=== PATIENT | female | born 1960 | race Caucasian/White ===

== ENCOUNTER 2020-11-29 05:34 | Outpatient (RCR) | payer MEDICAID ==
[~2020-11-29] VITALS: Ht 165.1 cm; Wt 59.2 kg
[~2020-11-29 05:34] MED LIST: APIX5TAB PO; CITA40TA19 PO; ENAL1TAB8 PO; ENLP5T PO; FLUO20CA42 PO; FOLI1TAB33 PO; TRZ50T PO
== END 2020-11-29 10:55 | disposition home or self-care (01) ==
LOC: PREOP 05:34
PROVIDERS: ATTEND Surgery
DX: Z01.818 Encounter for other preprocedural examination (principal); R22.0 Localized swelling, mass and lump, head; Z20.822 Contact with and (suspected) exposure to COVID-19
CPT/HCPCS: 87635

== ENCOUNTER 2020-12-01 10:09 | Day surgery (SDC) | payer MEDICAID, OTHER ==
[~2020-12-01] VITALS: Ht 165.1 cm; Wt 59.2 kg
[2020-12-01] VITALS (11 sets, daily range): BP systolic 109–130; BP diastolic 53–69
--- NOTE | 2020-12-01 10:31 | Progress Note-Pre Operative ---
Pre-Operative Progress Note H&P Reviewed The H&P was reviewed, patient examined and no changes noted. Time Seen by Provider: 10:29 Date H&P Reviewed: Dec 01, 2020 Time H&P Reviewed: 10:30 Pre-Operative Diagnosis: Left cheek mass AIDAN CARY DO Dec 01, 2020 10:31
[2020-12-01] MEDS ORDERED: fentaNYL INJECTION 100 MCG/2 ML AMP ONE (10:44)
[2020-12-01] MEDS ORDERED: LIDOCAINE PF 2% 5 ML (XYLOCAINE) VIAL ONE (10:44)
[2020-12-01] MEDS ORDERED: proPOfol 200 MG/20 ML (DIPRIVAN) VIAL IV ONE (10:44)
[2020-12-01] MEDS ORDERED: ONDANSETRON 4 MG/2 ML (SDV) Z0FRAN ONE (10:44)
[2020-12-01] MEDS ORDERED: ceFAZolin INJECTION 1,000 MG in WATER (STERILE) FOR INJECTION 10 ML IV ONE (10:45)
[2020-12-01] MEDS ORDERED: MIDAZOLAM 2 MG/2 ML (VERSED) VIAL ONE (10:45)
[2020-12-01] MEDS ORDERED: LACTATED RINGERS 1,000 ML IV PRN (10:45)
[2020-12-01] MEDS ORDERED: SEVOFLURANE (ULTANE) 15 ML INHAL SOLN ONE (10:45)
[2020-12-01] MEDS ORDERED: LIDOCAINE/EPI 1%-1:200,000 (XYLOCAINE) 10 ML VIAL ONE (10:59)
[2020-12-01] MEDS ORDERED: RT-ALBUINH INH (12:25)
[2020-12-01] MEDS ORDERED: BSS 15 ML ONE (12:30)
--- NOTE | 2020-12-01 13:00 | Progress Note-Post Operative ---
Post-Operative Progess Note Surgeon (s)/Pantograph Machine Set Up Operator (s) Surgeon AIDAN CARY DO Pantograph Machine Set Up Operator: BASIL Godinez Pre-Operative Diagnosis Left cheek mass Post-Operative Diagnosis same pending path Procedure & Operative Findings Date of Procedure 12/01/20 Procedure Performed/Findings Exc Left cheek mass, 2.2 cm down to just above orbicularis muscle Anesthesia Type LMA Estimated Blood Loss Estimated blood loss (mL): scant Specimens/Packing Specimens Removed left cheek mass AIDAN CARY DO Dec 01, 2020 13:00
[2020-12-01] MEDS ORDERED: ACHD5005 PO (13:01)
--- NOTE | 2020-12-01 13:02 | Discharge Inst-Surgical ---
Discharge Inst-Surgical Depart Medication/Instructions New, Converted or Re-Newed RX: RX Given to Pt/Family Patient Instructions Follow up Appt: Make appointment for 1 week. [phone] Instructions: May shower in 24 hours, no tub bath or soaking. Use incentive spirometer at home as directed. No Smoking Skin/Wound Care: May remove bandages in am. You need to leave the Dermabond on incision it will fall off on it's own. Symptoms to Report: Appetite Changes, Extremity Discoloration, Numbness/Tingling, Swelling Increased, Bleeding Excessive, Eyesight Changes, Pain Increased, Urine Color Change, Constipation(Persistent), Fever over 101 degree F, Pain/Pressure in chest, Urinating Difficulty, Cough Up/Vomit Blood, Heart Beat Irreg/Pounding, P ain/Pressure in jaw, Cramps in feet or legs, Lightheadedness, Pain/Pressure in shoulder, Diarrhea(Persistent), Memory Changes Suddenly, Questions/Concerns, Weight gain consecutive days, Dizziness/Fainting, Nausea/Vomiting, Shortness of Breath, Weight gain over 2 pounds If questions or concerns contact your physician Or seek help at emergency department. Activity Activity as Tolerated: Yes Activity Instructions: Avoid Stress to Incision Driving Instructions: No Driving/Refer to Dr. Barrios Discharge Diet: No Restrictions Diet After 24 Hours: Clear Liquid if Nauseous If Any Problems/Questions/Issu: Contact Your Physician, Go to Emergency Room Skin/Wound Care Infection Signs and Symptoms: Increased Redness, Foul Odor of Wound, Increased Drainage, Skin Itchy or Has a Rash, Increased Swelling, Temperature Above 101 F Bathing Instructions: Shower Stitches/[place]/Dermabond Dis: AIDAN White DO Dec 01, 2020 13:02
[2020-12-01] MEDS ORDERED: ONDANSETRON 4 MG/2 ML (SDV) Z0FRAN IVP PRN (13:15)
[2020-12-01] MEDS: HYDROmorphone 2 MG/ML VIAL (DILAUDID) IV ONE ×2 (13:19→13:42)
--- NOTE | 2020-12-01 13:34 | Anesthesia-General Post-Op ---
General Patient Condition Mental Status/LOC: Same as Preop Cardiovascular: Satisfactory Nausea/Vomiting: Absent Respiratory: Satisfactory Pain: Controlled Complications: Absent Post Op Complications Complications None Follow Up Care/Instructions Patient Instructions None needed. Anesthesia/Patient Condition Patient Condition Patient is doing well, no complaints, stable vital signs, no apparent adverse anesthesia problems. No complications reported per nursing. D/C home per [facility] Criteria: Yes BUCK AMADOR CRNA Dec 01, 2020 13:34
[2020-12-01] MEDS ORDERED: HYDROcodone/APAP 5 MG/325 MG (LORTAB) TAB ONE (14:00)
[2020-12-01] MEDS ORDERED: HYDROcodone/APAP 5 MG/325 MG (LORTAB) TAB PO ONE (14:15)
--- NOTE | 2020-12-01 15:58 | OPERATIVE REPORT ---
DATE OF SERVICE: PREOPERATIVE DIAGNOSIS: Left cheek mass. POSTOPERATIVE DIAGNOSIS: Left cheek mass, pending pathology. PROCEDURE: Excision of left cheek mass 2.2 cm incision just above the ocularis muscle. SURGEON: Fran Courtney DO NARROW FABRICS WEAVER: APRIL Godinez. ANESTHESIA: LMA. SPECIMEN: Left cheek mass. BLOOD LOSS: Scant. FLUIDS: Per anesthesia. POSTOPERATIVE CONDITION: Stable. INDICATION FOR PROCEDURE: The patient is a 60-year-old female who has a mass, on the left cheek, just below the eye and close to the nose, needed to get this removed, looked like it was probably a cancer. FINDINGS: The patient had this area removed, elliptical incision measuring 2.2 cm long, going down to the subcutaneous tissue and just above the orbicularis muscle. PROCEDURE NOTE: After informed consent was obtained, the patient was brought to the operating room, placed on the operating table in supine position. She was sterilely prepped and draped in normal fashion. Local lidocaine was used to infiltrate the skin around this mass, then made an elliptical incision with #15 blade, carried down through the skin and subcutaneous tissue and removed this with Bovie electrocautery. Sutured long suture laterally and a short superiorly to anamika this, passed this off the table. There looked like there was a deep portion of mass that got left behind when I removed the skin and I grasped this with an Allis and then cut this off with Bovie electrocautery and sent this with specimen. Hemostasis obtained using Bovie electrocautery, then elected to close the incision with 5-0 undyed Monocryl, four interrupted subcuticular sutures and one simple suture, did not look like it had close the eye. At this point, the area was cleaned and dried and skin Affix was placed. The patient tolerated the procedure. Sponge, instrument and needle count correct at the end of the case. Job ID: [id number] DocumentID: [id number] Dictated Date: 12/01/2020 12:58:56 Carpenter And Joiner Date: 12/01/2020 15:56:50 Dictated By: FRAN COURTNEY DO [facility]
== END 2020-12-01 15:30 | disposition home or self-care (01) ==
LOC: SDC 10:09
PROVIDERS: ATTEND Surgery
DX: C44.319 Basal cell carcinoma of skin of other parts of face (principal); I10 Essential (primary) hypertension; J45.909 Unspecified asthma, uncomplicated; F41.9 Anxiety disorder, unspecified; F32.9 Major depressive disorder, single episode, unspecified; Z79.899 Other long term (current) drug therapy; Z79.01 Long term (current) use of anticoagulants; Z87.891 Personal history of nicotine dependence
CPT/HCPCS: 87081; 88305

== ENCOUNTER 2021-04-15 14:04 | Emergency (ER) | payer MEDICAID ==
[~2021-04-15] VITALS: Ht 165 cm; Wt 68.0 kg
[~2021-04-15 14:04] MED LIST changes: +ACHD5005 PO; +DULO30CA49 PO; +DULO60CA59 PO; +ENAL10TA16 PO; +FURO20TA4 PO; +GABA300C PO; +HYDR-3781 PO; +POTA-51 PO; +RT-ALBUINH INH
[2021-04-15] MEDS ORDERED: ACHD5005 PO (14:26)
--- NOTE | 2021-04-15 14:26 | ED Upper Extremity ---
General Chief Complaint: Upper Extremity Stated Complaint: L SHOULDER PAIN Source: patient Exam Limitations: no limitations History of Present Illness Date Seen by Provider: Apr 15, 2021 Time Seen by Provider: 14:24 Initial Comments To ER with left shoulder pain for the past few days. She was here a few days ago for a proximal left humerus fracture and signed her self out AGAINST MEDICAL ADVICE. She is without pain medication or a sling at home Onset: just prior to arrival Severity: moderate Pain/Injury Location: left shoulder Method of Injury: fell Modifying Factors: Worse With Movement Allergies and Home Medications Allergies Coded Allergies: No Known Drug Allergies (Unverified , 11/25/20) Home Medications Duloxetine HCl 30 Mg Capsule.dr, 30 MG PO DAILY, (Reported) TAKES 30MG +60MG DAILY Duloxetine HCl 60 Mg Capsule.dr, 60 MG PO DAILY, (Reported) TAKES 30MG +60MG DAILY Enalapril Maleate 10 Mg Tablet, 10 MG PO DAILY, (Reported) Folic Acid 1 Mg Tablet, 1 MG PO DAILY, (Reported) Furosemide 20 Mg Tablet, 20 MG PO DAILY, (Reported) Gabapentin 300 Mg Capsule, 300 MG PO QID, (Reported) Hydrocodone/Acetaminophen 1 Each Tablet, 1 TAB PO Q4H PRN for PAIN-MODERATE (5- 7) Prescribed by: MARIE MILIAN on 04/15/21 1426 Hydroxyzine Pamoate 25 Mg Capsule, 25 MG PO TID PRN for ANXIETY, (Reported) Potassium Chloride 20 Meq Tablet.er, 20 MEQ PO DAILY, (Reported) Trazodone HCl 50 Mg Tablet, 50-100 MG PO HS PRN for SLEEP, (Reported) Patient Home Medication List Home Medication List Reviewed: Yes Review of Systems Constitutional: see HPI EENTM: see HPI Respiratory: no symptoms reported Cardiovascular: no symptoms reported Genitourinary: no symptoms reported Musculoskeletal: see HPI Skin: no symptoms reported Psychiatric/Neurological: No Symptoms Reported Past Zzvmlel-Ijgtyq-Rnuqdq Hx Seasonal Allergies Seasonal Allergies: No Past Medical History Surgeries: Yes Orthopedic Respiratory: Yes Asthma Currently Using CPAP: No Currently Using BIPAP: No Cardiac: Yes (HX OF DVT) Deep Vein Thrombosis, Hypertension Neurological: No Female Reproductive Disorders: Denies Genitourinary: No Gastrointestinal: No Musculoskeletal: No Endocrine: No HEENT: No Cancer: No Psychosocial: Yes Anxiety, Depression Integumentary: No Blood Disorders: Yes (RH FACTOR) Family Medical History No Pertinent Family Hx Physical Exam Vital Signs Capillary Refill : Height, Weight, BMI Height: '" Weight: lbs. oz. kg; 22.03 BMI Method: General Appearance: WD/WN, no apparent distress Neck: non-tender, full range of motion Respiratory: no respiratory distress, no accessory muscle use Shoulder: deformity, ecchymosis, limited ROM, pain, soft tissue tenderness, swelling Elbow/Forearm: normal inspection, non-tender Wrist: Yes normal inspection, Yes non-tender (Strong radial pulse left wrist) Hand: normal inspection, non-tender Neurologic/Psychiatric: alert, normal mood/affect, oriented x 3 Progress/Results/Core Measures Results/Orders My Orders Orders - MARIE MILIAN APRN Ekg Tracing (04/15/21 14:30) Ketorolac Injection (Toradol Injection) (04/15/21 14:30) Hydrocodone/Apap 5/325 Tablet (Lortab 5 (04/15/21 14:30) Departure Communication (Admissions) 2418 her EKG shows sinus rhythm rate of [address] segment changes or ectopy normal intervals Impression Primary Impression: Closed fracture of left proximal humerus Disposition: HOME, SELF-CARE Condition: Stable Departure-Patient Inst. Decision time for Depature: 14:24 Referrals: NO,LOCAL PHYSICIAN (PCP/Family) Primary Care Physician Patient Instructions: Shoulder Fracture Add. Discharge Instructions: 1. Return to ER for any concerns 2. All discharge instructions reviewed with patient and/or family. Voiced understanding. Scripts Hydrocodone/Acetaminophen (Hydrocodone-Acetamin 5-325 mg) 1 Each Tablet 1 TAB PO Q4H PRN for PAIN-MODERATE (5-7), #14 TAB Prov: MARIE MILIAN APRN 04/15/21 MARIE MILIAN APRN Apr 15, 2021 14:26
[2021-04-15] MEDS ORDERED: KETOROLAC 60 MG/2 ML VIAL IM ONE (14:30)
[2021-04-15] MEDS ORDERED: HYDROcodone/APAP 5 MG/325 MG (LORTAB) TAB PO ONE (14:30)
[2021-04-15 15:02] VITALS: BP 156/68
== END 2021-04-15 15:03 | disposition home or self-care (01) ==
LOC: EDUNIT# 14:04 → ER 14:05
DX: S42.292A Other displaced fracture of upper end of left humerus, initial encounter for closed fracture (principal); J45.909 Unspecified asthma, uncomplicated; I10 Essential (primary) hypertension; F41.9 Anxiety disorder, unspecified; F32.9 Major depressive disorder, single episode, unspecified; Z79.899 Other long term (current) drug therapy; X58.XXXA Exposure to other specified factors, initial encounter
CPT/HCPCS: 93005

== ENCOUNTER → 2021-04-27 | Outpatient (CLI) | payer MEDICAID ==
--- NOTE | 2021-04-27 10:19 | Diagnostic Imaging Report ---
Indication: Left arm pain AP and transscapular views of left shoulder are obtained. When compared to study of 04/09/2021, there has been further increase in displacement and angulation at the comminuted proximal humeral shaft fracture. There is also inferior dislocation of the humeral head with respect to the glenoid process. IMPRESSION: Inferior dislocation of left humeral head with increasing angulation of proximal humeral shaft fracture. Dictated by: Dictated on workstation # [id number]
== END ==
LOC: ORTHO 09:25
PROVIDERS: ATTEND Orthopaedic Surgery
DX: S42.232D 3-part fracture of surgical neck of left humerus, subsequent encounter for fracture with routine healing (principal); X58.XXXD Exposure to other specified factors, subsequent encounter
CPT/HCPCS: 73030; 99203

== ENCOUNTER 2021-05-27 12:58 | Emergency (ER) | payer MEDICAID ==
[~2021-05-27] VITALS: Ht 165 cm; Wt 68.0 kg
[2021-05-27] MEDS ORDERED: morphine INJ 10 MG/ML 1ML (SYR OR VIAL) IVP STA ×2 (13:08→14:50)
--- OUTSIDE RECORDS SUMMARY | 2021-05-27 13:12 | XMS REPORT | Encounter Summary ---
Author Author [facility] Organization [facility] Address Unknown Phone Unavailable Care Team Providers Care Laundry Assistant Name Role Phone Cassius Morton PA-C PCP Loyda Li Unavailable Unavailable Encounter Details Care Team Description Date Type Department Loyda Li 05/18/2021 Med Assistance [place] [facility] [address] [place] [address] Social History Date Tobacco Use Types Packs/Day Years Used Current Every Day Smoker Cigarettes Smokeless Tobacco: Never Used Comments: less than a pack/week Comments Alcohol Use Standard Drinks/Week [place] 06[place]16. 5 fireballs 1 beer a week Not Currently 0 (1 standard drink = 0.6 o z pure alcohol) Alcohol Habits Answer Date Recorded How often do you have a drink containing alcohol? 4 or mor e times a week 05/04/2020 How many drinks containing alcohol do you have on 10 or mo re 05/04/2020 a typical day when you are drinking? How often do you have six or more drinks on one Daily or a lmost daily 05/04/2020 occasion? Social Isolation Answer Date Recorded In a typical week, how many times do you talk on Once a we ek 03/29/2020 the phone with family, friends, or neig hbors? How often do you get together with friends or Never 03/29/2020 relatives? How often do you attend yarsanism or latter-day Never 03/29/2020 services? Do you belong to any clubs or organizations such No 03/29/2020 as yarsanism groups, unions, fraternal or athletic groups, or school groups? How often do you attend meetings of the clubs or Never 03/29/2020 organizations you belong to? Are you now , , , , Divorce d 03/29/2020 never or living with a partner? Physical Activity Answer Date Recorded On average, how many days per week do you engage 0 days 03/29/2020 in moderate to strenuous exercise (like walking fast, running, jogging, dancing, swimmi ng, biking, or other activities that cause a light or heavy sweat)? On average, how many minutes do you engage in 0 min 03/29/2020 exercise at this level? Stress Answer Date Recorded Do you feel stress - tense, restless, nervous, or Very muc h 03/29/2020 anxious, or unable to sleep at night be cause your mind is troubled all the time - these d ays? Education Answer Date Recorded What is the highest level of school you have High school g raduate 05/04/2020 completed or the highest degree you hav e received? Financial Resource Strain Answer Date Recorde d How hard is it for you to pay for the very basics Very bruna d 03/29/2020 like food, housing, medical care, and h eating? Intimate Partner Violence Answer Date Recorde d Within the last year, have you been afraid of your No 03/29/2020 partner or ex-partner? Within the last year, have you been humiliated or No 03/29/2020 emotionally abused in other ways by you r partner or ex-partner? Within the last year, have you been kicked, hit, No 03/29/2020 slapped, or otherwise physically hurt b y your partner or ex-partner? Within the last year, have you been raped or No 03/29/2020 forced to have any kind of sexual activ ity by your partner or ex-partner? Food Insecurity Answer Date Recorded Within the past 12 months, you worried that your Sometimes true 05/04/2020 food would run out before you got money to buy more. Within the past 12 months, the food you bought Sometimes t rue 05/04/2020 just didn't last and you didn't have mo adam to get more. Transportation Needs Answer Date Recorded In the past 12 months, has lack of transportation No 03/29/2020 kept you from medical appointments or f rom getting medications? In the past 12 months, has lack of transportation No 03/29/2020 kept you from meetings, work, or gettin g things needed for daily living? Control Partners Comments Sexually Active Post-menopausal Male Not Currently Sex Assigned at Date Recorded Female 06/17/2020 1:47 PM CDT Industry Job Start Date Occupation Not on file Not on file Not on file documented as of this encounter Miscellaneous Notes * Progress Notes - Loyda Li - 05/18/2021 2:11 PM CDT [place] is no longer on the free program Loyda Li documented in this encounter Plan of Treatment Not on filedocumented as of this encounter Visit Diagnoses Not on filedocumented in this encounter Care Teams Start Date End Date Laundry Assistant Relationship Specialty 10/02/12 Cassius Morton PA-C PCP - General [address] [place] [address] [email or web address] 01/04/21 Loyda Li Community Resource Representativ e documented as of this encounter
--- OUTSIDE RECORDS SUMMARY | 2021-05-27 13:12 | XMS REPORT | Clinical Summary ---
Author Author [facility] Address Unknown Phone Unavailable Care Team Providers Care Fisher Diver Net Name Role Phone Cassius Morton PA-C PCP Loyda Li Unavailable Unavailable Allergies No known active allergies Medications End Date Status Medication Sig Dispensed Refills Start Date Active albuterol (PROAIR, Inhale 2 54 g 3 02 VENTOLIN) 108 (90 Base) puffs into 0 MCG/ACT the lungs inhalerIndications: every 6 (six) Bronchitis hours as needed for Shortness of Breath. Active Melatonin 5 MG CHEW Chew 1 tablet 30 tablet 1 08/02 (5 mg total) 0 at bedtime. Active apixaban (ELIQUIS) 5 MG Take 1 tablet 180 tablet 3 tabletIndications: Acute (5 mg total) 0 deep vein thrombosis by mouth 2 (DVT) of femoral vein of (two) times left lower extremity daily. ([facility]) Active gabapentin (NEURONTIN) 2 po tid 270 capsule 1 100 MG 0 capsuleIndications: Neuropathy, Leg pain, bilateral Active traZODone (DESYREL) 50 MG Take 1 tablet 30 tablet 2 tabletIndications: Mild (50 mg total) 1 episode of recurrent by mouth at major depressive disorder bedtime. ([facility]) Active citalopram (CELEXA) 40 MG Take 1 tablet 30 tablet 2 tabletIndications: Mild (40 mg total) 1 episode of recurrent by mouth major depressive disorder daily. ([facility]) Active enalapril (VASOTEC) 5 MG Take 1 tablet 30 tablet 2 tabletIndications: (5 mg total) 1 Essential hypertension by mouth daily. Active potassium chloride SA Take 1 tablet 90 tablet 2 (K-TAB) 20 MEQ (20 mEq 1 tabletIndications: total) by Hypokalemia mouth daily. Active folic acid (FOLVITE) 1 MG Take 1 tablet 30 tablet 2 tablet (1 mg total) 1 by mouth daily. Active oxycodone-acetaminophen Take 1 tablet 30 tablet 0 (PERCOCET) 7.5-325 MG per by mouth 1 tabletIndications: every 8 Neuropathy, Leg pain, (eight) hours bilateral as needed for Moderate Pain. Active enalapril (VASOTEC) 10 MG Take 1 tablet 30 tablet 0 tabletIndications: by mouth once 1 Essential hypertension daily Active furosemide (LASIX) 20 MG TAKE 1 TABLET 30 tablet 1 tablet BY MOUTH ONCE 1 DAILY . APPOINTMENT REQUIRED FOR FUTURE REFILLS 05/04/2021 Discontinued furosemide (LASIX) 20 MG Take 1 tablet 30 tablet 0 tablet by mouth once 1 daily Active Problems Patient Care Coordination Note Ventolin is no longer on the free program Loyda Li Ventolin will be refilled in 7 to 10 days Loyda Medication Eliquis will be auto shipped every 3 months. It was shipped out on 01/05/2021 Queenie Thompson (10/19/2020 9:49 AM): ?Naldo Gutierrez will ship medication to pt on 10/19/20. Pt should receives med on 10/20/20. Queenie Morales (04/14/2020 1:54 PM): ?[employer] has approved PAP on 04/09/20 thru 04/08/2021. Medication has not been shipped yet Problem Noted Date Tobacco use 07/19/2020 Overview: Formatting of this note might be differ ent from the original. Automatically added based on charted SH X tobacco use status. L ast Assessment & Plan: Formatting of this note might be differ ent from the original. Ready to quit: No Counseling given: Yes Comment: less than a pack/week Deep vein thrombosis (DVT) of lower extremity 2019 Last Assessment & Plan: Formatting of this note might be differ ent from the original. Reviewed records from [facility]. Continue Eliquis. Report increased swelling, chest pain o r trouble breathing. I did refill a short script of Percocet 7.5 mg. I told her I would not feel chronic narcotics. Abdominal pain 06/18/2020 Hypomagnesemia 06/17/2020 Elevated LFTs 06/17/2020 Body mass index less than 19, adult 05/03/2020 Underweight 05/03/2020 Alcohol abuse 05/03/2020 Smoker 05/03/2020 TIA (transient ischemic attack) 03/29/2020 Gastroesophageal reflux disease without esophagitis 06/15/2014 Mild episode of recurrent major depress willie disorder Backache, unspecified Essential hypertension Last Assessment & Plan: Formatting of this note might be differ ent from the original. Elevated reading. She has run out of enalapril. Enalapril was refilled. Pain in joint, shoulder region Hepatitis C Resolved Problems Problem Noted Date Resolved Date Pyuria 06/17/2020 07/19/2020 Enteritis 06/17/2020 07/19/2020 Hypokalemia 05/03/2020 07/19/2020 Hypernatremia 05/03/2020 07/19/2020 Acute pancreatitis 05/03/2020 07/19/2020 Acute alcoholic intoxication 05/03/2020 0 Encounters Care Team Description Date Type Specialty Loyda Li 05/18/2021 Med Assistance Care Management Cassius Morton PA-C Medication Refill 05/02/2021 Refill Family Medicine Cassius Morton PA-C Record Request 04/11/2021 Telephone Family Medicine Cassius Morton PA-C Medication Refill 04/01/2021 Refill Family Medicine Ya Bronson MD 03/27/2021 Orders Only Family Medicine Cassius Morton PA-C Medication Refill (Enalapril, Furosemide ) 03/24/2021 Refill Family Medicine Queenie Morales LMSW 03/10/2021 Patient Care Management Outreach Queenie Morales LMSW 03/02/2021 Patient Care Management Outreach from Last 3 Months Immunizations Name Administration Dates Next Due INFLUENZA A&B TRIVALENT 07/15/2019 VAC ADJUVANTED PF (Adults=>65 y/o-FLUAD) INFLUENZA IIV4 PF 06/22/2020, 07/15/2019 (FLULAVAL,FLUZONE,FLUARIX ,AFLURIA QUAD) Influenza IIV3 PFree 07/04/2011 PPD Test 09/06/2020 Family History Medical History Relation Name Comments No Known Problems Father Cancer Mother Heart failure Mother Relation Name Status Comments Father Mother Social History Date Tobacco Use Types Packs/Day Years Used Current Every Day Smoker Cigarettes Smokeless Tobacco: Never Used Tobacco Cessation: Ready to Quit: No; Co unseling Given: Yes Comments: less than a pack/week Comments Alcohol [...] 03/29/2020 relatives? How often do you attend orthodox or taoism Never 03/29/2020 services? Do you belong to any clubs or organizations such No 03/29/2020 as orthodox groups, unions, fraternal or athletic groups, or [...] of school you have High school g [employer] 05/04/2020 completed or the highest degree you julio e received? Financial Resource Strain Answer Date [...] file Not on file Not on file Last Filed Vital Signs Reading Time Taken Comments Vital Sign 132/60 10/12/2020 10:36 AM SENIOR LOAN OFFICER Blood Pressure 80 10/12/2020 10:36 AM SENIOR LOAN OFFICER Pulse 36.1 C (97 F) 10/12/2020 10:36 AM SENIOR LOAN OFFICER Temperature 20 09/29/2020 11:47 AM SENIOR LOAN OFFICER Respiratory Rate 100% 07/19/2020 1:31 PM CDT Oxygen Saturation - - Inhaled Oxygen Concentration 53 kg (116 lb 12.8 oz) 10/12/2020 10:36 AM SENIOR LOAN OFFICER Weight 165.1 cm (5' 5") 06/18/2020 5:15 AM CDT Height 19.44 06/18/2020 5:15 AM CDT Body Mass Index Plan of Treatment Health Maintenance Due Date Last Done Comments Pneumo-Vaccine: 65+Yrs (1 1968 of 2 - PPSV23) Pneumo-Vaccine: Peds (0-5 1968 Yrs) & At-Risk Patients (6-64 Yrs) (1 of 2 - PPSV23) DTaP,Tdap,and Td Vaccines 1981 (1 - Tdap) MMR Vaccines-Adult 1981 Cervical Cancer Screening 1983 Breast Cancer 2012 Screening-Mammogram Colon Cancer Screening 2012 Zoster Vaccine (1 of 2) 2012 Influenza Vaccine (#1) 2021 06/22/2020, 07/15/2019, 07/15/2019, Additional history exists COVID-19 Vaccine Completed 01/19/2021, 12/18/2020 HIB Vaccines Aged Out No longer eligible based on patient's age to complete this topic IPV Vaccines Aged Out No longer eligible based on patient's age to complete this topic Meningococcal Vaccine Aged Out No longer eligib le based on patient's age to complete this topic Rotavirus Vaccines Aged Out No longer eligible based on patient's age to complete this topic Results Not on filefrom Last 3 Months Insurance Type Payer Benefit Subscriber ID Effective Phone Address Plan / Dates Group KANCARE AETNA KANCARE 19 [id number] 2020-P [address] [place] [address] [facility] [id number] Advance Directives For more information, please contact: [phone] Patient Animal Caretaker Supervisor Explanation Type Date Recorded Advance Directives and Living Will Power of Scoreboard Operator Date Inactivated Comments Code Status Date Activated 06/19/2020 2:35 PM Full Code 06/17/2020 10:25 AM 06/17/2020 5:11 AM Full Code 05/04/2020 11:18 AM 05/04/2020 11:18 AM Full Code 05/03/2020 2:04 AM Care Teams Start Date End Date Fisher Diver Net Relationship Specialty 10/02/12 Cassius Morton PA-C PCP - General [address] [place] [id number] [email or web address] 01/04/21 Loyda Li Community Resource Representativ e
--- OUTSIDE RECORDS SUMMARY | 2021-05-27 13:12 | XMS REPORT | Encounter Summary ---
Author Author [facility] Address Unknown Phone Unavailable Care Team Providers Care Entry Specialist Name Role Phone Cassius Morton PA-C PCP Loyda Li Unavailable Unavailable Reason for Visit * Reason Comments Medication Refill Encounter Details Care Team Description Date Type Department Cassius Morton PA-C [address] [place] [address] [email or web address] Medication Refill 05/02/2021 Refill Cotton O`Alfonso - [facility] [address] [place] [address] Social History Date Tobacco Use Types Packs/Day [...] 03/29/2020 relatives? How often do you attend temple or jew Never 03/29/2020 services? Do you belong to any clubs or organizations such No 03/29/2020 as temple groups, unions, fraternal or athletic groups, or [...] as of this encounter Miscellaneous Notes * Telephone Encounter - Ibeth Gay LPN - 05/04/2021 3:46 PM CDT Medication sent to pharmacy. * Telephone Encounter - Cassius Morton PA-C - 05/04/2021 3:07 PM CDT Ok x 2 * Telephone Encounter - Gracia Jurado LPN - 05/04/2021 11:53 AM CDT Unable to refill medication(s) per [facility] standing orders. Patient no showed for OV on 01/12/21 Called patient and left voice mail on appointment needed. Last refill note: Appointment required for future refills. Message routed to Provider for review. Requested Prescriptions Pending Prescriptions Disp Refills furosemide (LASIX) 20 MG tablet [Pharmacy Med Name: Furosemide 20 MG Oral Ta blet] 30 tablet 0 Sig: TAKE 1 TABLET BY MOUTH ONCE DAILY . APPOINTMENT REQUIRED FOR FUTURE REFIL LS Last Rx was written on 03/28/21 for qty 30 with 0 additional refills Last OV: 10/12/20 Next OV: none-patient no showed for f/u on 01/12/21 Pertinent Labs: n/a documented in this encounter Plan of Treatment Not on filedocumented as of this encounter Visit Diagnoses Not on filedocumented in this encounter Care Teams Start Date End Date Entry Specialist Relationship Specialty 10/02/12 Cassius Morton, YOVANIC PCP - General [address] [place] [address] [email or web address] 01/04/21 Loyda Li Community Resource Representativ e documented as of this encounter
--- OUTSIDE RECORDS SUMMARY | 2021-05-27 13:12 | XMS REPORT | Encounter Summary ---
Author Author [facility] Organization [facility] Address Unknown Phone Unavailable Care Team Providers Care Food Vendor Name Role Phone Cassius Morton PA-C PCP Loyda Li Unavailable Unavailable Reason for Visit * Reason Onset Date Comments Record Request 04/11/2021 Encounter Details Care Team Description Date Type Department Cassius Morton PA-C [address] [place] [address] [email or web address] Record Request 04/11/2021 Telephone [place] [place] [address] [place] [address] Social History Date Tobacco Use [...] 03/29/2020 relatives? How often do you attend gnosticism or uatsdin Never 03/29/2020 services? Do you belong to any clubs or organizations such No 03/29/2020 as gnosticism groups, unions, fraternal or athletic groups, or [...] Telephone Encounter - Ibeth Gay LPN - 04/11/2021 3:58 PM CDT Joy at [facility] called requesting a medication list for patient because she was just admitted there. Med list faxed to her at fax # [phone] documented in this encounter Plan of Treatment Not on filedocumented as of this encounter Visit Diagnoses Not on filedocumented in this encounter Care Teams Start Date End Date Food Vendor Relationship Specialty 10/02/12 Cassius Morton, YOVANIC PCP - General [address] [place] [address] [email or web address] 01/04/21 Loyda Li Community Resource Representativ e documented as of this encounter
--- OUTSIDE RECORDS SUMMARY | 2021-05-27 13:12 | XMS REPORT | Clinical Summary ---
Author Author [facility] Address Unknown Phone Unavailable Care Team Providers Care Roll Over Press Operator Name Role Phone PCP Unavailable Source Comments Some departments are not documenting in the electronic medical record. If you d o not see the information that you expected, contact Release of Information in [facility] [employer] Information Management department at [phone] for further assistan ce in locating additional records.[facility] Allergies Not on File Medications Not on file Active Problems Not on file Social History Date Tobacco Use Types Packs/Day Years Used Never Assessed Sex Assigned at Date Recorded Not on file Last Filed Vital Signs Not on file Plan of Treatment Health Maintenance Due Date Last Done Comments HIV SCREENING 1977 DTAP/TDAP VACCINES (1 - 1980 Tdap) HEPATITIS C SCREENING 1980 PHYSICAL (COMPREHENSIVE) 1980 EXAM CERVICAL CANCER SCREENING 1983 BREAST CANCER SCREENING 2002 COLORECTAL CANCER 2012 SCREENING SHINGLES RECOMBINANT 2012 VACCINE (1 of 2) INFLUENZA VACCINE 07/01/2021 Results Not on filefrom Last 3 Months 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
--- OUTSIDE RECORDS SUMMARY | 2021-05-27 13:12 | XMS REPORT | Encounter Summary ---
Author Author [facility] Address Unknown Phone Unavailable Care Team Providers Care Tobacco Buyer Name Role Phone Cassius Morton PA-C PCP Loyda Li Unavailable Unavailable Reason for Visit * Reason Onset Date Comments Medication Refill 04/01/2021 Encounter Details Care Team Description Date Type Department Cassius Morton PA-C [address] [place] [address] [email or web address] Medication Refill 04/01/2021 Refill Cotton O`Alfonso - [place] [address] [place] [address] Social History Date Tobacco Use [...] 03/29/2020 relatives? How often do you attend congregation or restoration Never 03/29/2020 services? Do you belong to any clubs or organizations such No 03/29/2020 as congregation groups, unions, fraternal or athletic groups, or [...] encounter Miscellaneous Notes * Telephone Encounter - Kamla Borja LPN - 04/01/2021 3:03 PM CDT The patient has been notified of this information and all questions answered. * Telephone Encounter - Kamla Borja LPN - 04/01/2021 1:56 PM CDT Mailbox full, unable to leave a message. * Telephone Encounter - Kamla Borja LPN - 04/01/2021 10:12 AM CDT Patient requesting refill of Percocet. documented in this encounter Plan of Treatment Not on filedocumented as of this encounter Visit Diagnoses Diagnosis Neuropathy Mononeuritis of unspecified site Leg pain, bilateral Pain in limb documented in this encounter Care Teams Start Date End Date Tobacco Buyer Relationship Specialty 10/02/12 Cassius Morton PA-C PCP - General [address] [place] [address] [email or web address] 01/04/21 Loyda Li Community Resource Representativ e documented as of this encounter
[2021-05-27] MEDS ORDERED: LIDOCAINE 1% INJ 20 ML 20 ML VIAL ONE (14:56)
--- NOTE | 2021-05-27 15:11 | ED General ---
General Chief Complaint: Post OP Complications/Pain Stated Complaint: INFECTION SX SITE Nursing Triage Note: ARRIVES VIA EMS TO ROOM 5. MARY REPORTS SHE HAD A LEFT SHOULDER SURGERY ON THE . AND THIS AM NOTICED HER INCISION WAS DRAINING "PUS". DENIES FEVER HOWEVER IS HAVING EXTREME PAIN WITH A RATING 8/10. Source of Information: Patient, Old Records Exam Limitations: No Limitations History of Present Illness Date Seen by Provider: May 27, 2021 Time Seen by Provider: 13:00 Initial Comments This 61-year-old woman presents to the emergency room via EMS with complaints of purulent drainage coming from the distal aspect of a left arm after ORIF to repair proximal humerus fracture. She reports this was performed by Dr. Vazquez on May 11. The purulent drainage abruptly started today and is copious, running down her arm. She denies any fever or systemic symptoms. There is localized erythema and induration around this punctate area of drainage. Allergies and Home Medications Allergies Coded Allergies: No Known Drug Allergies (Unverified , 11/25/20) Home Medications Clindamycin HCl 300 Mg Capsule, 300 MG PO QID Prescribed by: PHOEBE GUERRERO on 05/27/211825 Duloxetine HCl 30 Mg Capsule.dr, 30 MG PO DAILY, (Reported) TAKES 30MG +60MG DAILY Duloxetine HCl 60 Mg Capsule.dr, 60 MG PO DAILY, (Reported) TAKES 30MG +60MG DAILY Enalapril Maleate 10 Mg Tablet, 10 MG PO DAILY, (Reported) Folic Acid 1 Mg Tablet, 1 MG PO DAILY, (Reported) Furosemide 20 Mg Tablet, 20 MG PO DAILY, (Reported) Gabapentin 300 Mg Capsule, 300 MG PO QID, (Reported) Hydrocodone/Acetaminophen 1 Each Tablet, 1 TAB PO Q4H PRN for PAIN-MODERATE (5- 7) Prescribed by: MARIE MILIAN on 04/15/21 1426 Hydroxyzine Pamoate 25 Mg Capsule, 25 MG PO TID PRN for ANXIETY, (Reported) L.acidoph & Paracasei,B.lactis 1 Each Capsule, 1 EACH PO TIDAC May substitute probiotic with equivalent efficacy. Prescribed by: PHOEBE GUERRERO on 05/27/211825 Potassium Chloride 20 Meq Tablet.er, 20 MEQ PO DAILY, (Reported) Sulfamethoxazole/Trimethoprim 1 Each Tablet, 1 EACH PO TID TID dose prescribed due to severity of infection Prescribed by: PHOEBE GUERRERO on 05/27/211825 Trazodone HCl 50 Mg Tablet, 50-100 MG PO HS PRN for SLEEP, (Reported) Patient Home Medication List Home Medication List Reviewed: Yes Review of Systems Review of Systems Constitutional: no symptoms reported EENTM: no symptoms reported Respiratory: no symptoms reported Cardiovascular: no symptoms reported Gastrointestinal: no symptoms reported Genitourinary: no symptoms reported Musculoskeletal: see HPI Skin: no symptoms reported Psychiatric/Neurological: No Symptoms Reported Hematologic/Lymphatic: No Symptoms Reported Immunological/Allergic: no symptoms reported Past Rovdvow-Ssmdjf-Xeison Hx Patient Social History Tobacco Use?: Yes Smoking Status: Current Everyday Smoker Use of E-Cig and/or Vaping dev: No Substance use?: No Alcohol Use?: No Pt feels they are or have been: No Immunizations Up To Date Influenza Vaccine Up-to-Date: Yes; Up-to-Date First/Initial COVID19 Vaccinat: december 2020 Second COVID19 Vaccination Luis: january2021 COVID19 Vaccine Glassie: barry Seasonal Allergies Seasonal Allergies: No Past Medical History Surgeries: Yes Orthopedic Respiratory: Yes Asthma Currently Using CPAP: No Currently Using BIPAP: No Cardiac: Yes (HX OF DVT) Deep Vein Thrombosis, Hypertension Neurological: No Female Reproductive Disorders: Denies Genitourinary: No Gastrointestinal: No Musculoskeletal: No Endocrine: No HEENT: No Cancer: No Psychosocial: Yes Anxiety, Depression Integumentary: No Blood Disorders: Yes (RH FACTOR) Family Medical History No Pertinent Family Hx Physical Exam Vital Signs Vital Signs - First Documented 05/27/21 12:58 Temp 35.8 Pulse 94 Resp 20 B/P (MAP) 108/77 (87) Pulse Ox 99 O2 Delivery Room Air Capillary Refill : Less Than 3 Seconds Height, Weight, BMI Height: '" Weight: lbs. oz. kg; 24.00 BMI Method: General Appearance: WD/WN, Mild Distress HEENT: PERRL/EOMI, Normal ENT Inspection Neck: Normal Inspection Respiratory: Lungs Clear, Normal Breath Sounds, No Accessory Muscle Use Cardiovascular: Regular Rate, Rhythm, No Edema, No Murmur Gastrointestinal: Normal Bowel Sounds, Soft; No Distended Extremity: Other (Erythema and induration on the anterior aspect of the left upper arm near the distal aspect of the incisional scar. There is a punctate area of drainage with copious amounts of purulent drainage coming from the wound. This is easily expressed. There is localized pain in that area.) Neurologic/Psychiatric: Alert, Oriented x3, No Motor/Sensory Deficits, Normal Mood/Affect, hansard reporter II-XII Norm as Tested Skin: Warm/Dry, Erythema, Other (See extremity exam above) Focused Exam Lactate Level 05/27/21 13:25: Lactic Acid Level 1.80 Lactic Acid Level Laboratory Tests Test 05/27/21 13:25 Lactic Acid Level 1.80 MMOL/L (0.50-2.00) Progress/Results/Core Measures Suspected Sepsis SIRS Temperature: Pulse: 94 Respiratory Rate: 20 Laboratory Tests 05/27/21 15:05: White Blood Count 13.3H Blood Pressure 108 /77 Mean: 87 05/27/21 13:25: Lactic Acid Level 1.80 Laboratory Tests 05/27/21 15:05: Creatinine 0.91, INR Comment 1.5H, Platelet Count 367, Total Bilirubin 0.5 Results/Orders Lab Results Laboratory Tests Test 05/27/21 13:25 05/27/21 15:05 Range/Units Lactic Acid Level 1.80 0.50-2.00 MMOL/L White Blood Count 13.3 H 4.3-11.0 10^3/uL Red Blood Count 2.50 L 3.80-5.11 10^6/uL Hemoglobin 6.8 *L 11.5-16.0 g/dL Hematocrit 22 L 35-52 % Mean Corpuscular Volume 89 80-99 fL Mean Corpuscular Hemoglobin 27 25-34 pg Mean Corpuscular Hemoglobin Concent 31 L 32-36 g/dL Red Cell Distribution Width 14.9 H 10.0-14.5 % Platelet Count 367 130-400 10^3/uL Mean Platelet Volume 10.1 9.0-12.2 fL Immature Granulocyte % (Auto) 1 % Neutrophils (%) (Auto) 78 H 42-75 % Lymphocytes (%) (Auto) 13 12-44 % Monocytes (%) (Auto) 7 0-12 % Eosinophils (%) (Auto) 0 0-10 % Basophils (%) (Auto) 0 0-10 % Neutrophils # (Auto) 10.4 H 1.8-7.8 10^3/uL Lymphocytes # (Auto) 1.7 1.0-4.0 10^3/uL Monocytes # (Auto) 1.0 0.0-1.0 10^3/uL Eosinophils # (Auto) 0.0 0.0-0.3 10^3/uL Basophils # (Auto) 0.0 0.0-0.1 10^3/uL Immature Granulocyte # (Auto) 0.2 H 0.0-0.1 10^3/uL Prothrombin Time 18.5 H 12.2-14.7 SEC INR Comment 1.5 H 0.8-1.4 Activated Partial Thromboplast Time 45 H 24-35 SEC Sodium Level 132 L 135-145 MMOL/L Potassium Level 3.6 3.6-5.0 MMOL/L Chloride Level 98 98-107 MMOL/L Carbon Dioxide Level 24 21-32 MMOL/L Anion Gap 10 5-14 MMOL/L Blood Urea Nitrogen 8 7-18 MG/DL Creatinine 0.91 0.60-1.30 MG/DL Estimat Glomerular Filtration Rate 63 BUN/Creatinine Ratio 9 Glucose Level 120 H 70-105 MG/DL Calcium Level 9.8 8.5-10.1 MG/DL Corrected Calcium 10.2 H 8.5-10.1 MG/DL Total Bilirubin 0.5 0.1-1.0 MG/DL Aspartate Amino Transf (AST/SGOT) 28 5-34 U/L Alanine Aminotransferase (ALT/SGPT) 18 0-55 U/L Alkaline Phosphatase 134 40-136 U/L C-Reactive Protein High Sensitivity 13.40 H 0.00-0.50 MG/DL Total Protein 7.9 6.4-8.2 GM/DL Albumin 3.5 3.2-4.5 GM/DL My Orders Orders - PHOEBE SULTANA MD Cbc With Automated Diff (05/27/21 13:08) Comprehensive Metabolic Panel (05/27/21 13:08) Blood Culture (05/27/21 13:08) Protime With Inr (05/27/21 13:08) Partial Thromboplastin Time (05/27/21 13:08) Ed Iv/Invasive Line Start (05/27/21 13:08) Vital Signs Adult Sepsis Patie Q15M (05/27/21 13:08) Remove Rings In Anticipation O (05/27/21 13:08) Lactic Acid Analyzer (05/27/21 13:08) Morphine Injection (Morphine Injection (05/27/21 13:08) Wound Culture (05/27/21 13:08) Hs C Reactive Protein (05/27/21 14:15) Morphine Injection (Morphine Injection (05/27/21 14:50) Lidocaine 1% Inj 20 Ml (Xylocaine 1% Inj (05/27/21 14:56) Red Cells Leukocytes Reduced (05/27/21 15:36) Type And Screen (05/27/21 15:36) Clindamycin 900 Mg/50 Ml Ivpb (Cleocin P (05/27/21 15:45) Ceftriaxone (Rocephin) (05/27/21 15:45) Vancomycin Injection (Vancomycin Injecti (05/27/21 16:15) Vancomycin Injection (Vancomycin Injecti (05/27/21 17:15) General/Regular (05/27/21 Dinner) Medications Given in ED Current Medications Medications Dose Ordered Sig/Corby Route Start Time Stop Time Status Last Admin Dose Admin Ceftriaxone Sodium 1000 mg/ Sterile Water 10 ml @ 200 mls/hr ONCE ONCE IV 05/27/21 15:45 05/27/21 15:47 DC 05/27/21 16:59 200 MLS/HR Lidocaine HCl 20 ml STK-MED ONCE .ROUTE 05/27/21 14:56 05/27/21 14:59 DC 05/27/21 15:17 20 ML Vancomycin HCl 500 mg/Sodium Chloride 100 ml @ 100 mls/hr ONCE ONCE IV 05/27/21 17:15 05/27/21 18:14 DC 05/27/21 17:03 100 MLS/HR Vancomycin HCl 750 mg/Sodium Chloride 100 ml @ 100 mls/hr ONCE ONCE IV 05/27/21 16:15 05/27/21 17:14 DC 05/27/21 17:04 100 MLS/HR Vital Signs/I&O 05/27/21 12:58 Temp 35.8 Pulse 94 Resp 20 B/P (MAP) 108/77 (87) Pulse Ox 99 O2 Delivery Room Air Capillary Refill : Less Than 3 Seconds Blood Pressure Mean: 87 Progress Note #1: Time: 15:12 Progress Note Patient has been treated with morphine x2 for pain control. We are trying to obtain baseline labs to help monitor infection progression and ascertain appropriate initial treatment. I did speak with Dr. Vazquez. He advised treating with outpatient antibiotics and discharge home if infection is not severe versus transferring to the ER at [facility]. We are awaiting lab results. Progress Note #2: Time: 18:19 Progress Note Patient is currently receiving her antibiotics. She will then receive a unit of packed red blood cells due to her severe anemia. Vital signs are stable at this time. She was given instructions to have a low threshold for returning to the emergency room if symptoms worsen over the weekend. She has an appointment with Dr. Vazquez on the . If possible, she should go directly to the [facility] ER if she needs to return to the hospital for continuity of care. Departure Impression Primary Impression: Surgical wound infection Additional Impression: Severe anemia Disposition: HOME, SELF-CARE Condition: Improved Departure-Patient Inst. Decision time for Depature: 18:20 Referrals: NO,LOCAL PHYSICIAN (PCP/Family) Primary Care Physician Patient Instructions: Wound Infection Add. Discharge Instructions: Continue taking your medications as previously directed. Start your antibiotics no later than tomorrow morning. Keep your appointment with Dr. Vazquez. Take these discharge instructions with you to your appointment along with the printed labs. Also follow-up with your primary care provider soon as possible. Please call Sunday to schedule an appointment. Return to the emergency room if you have worsening symptoms such as spreading redness, increasing pain, vomiting, etc. or develop new symptoms such as fevers over 100 degrees. Call with questions or concerns. Scripts L.acidoph & Paracasei,B.lactis (Probiotic) 1 Each Capsule 1 EACH PO TIDAC, #60 CAP May substitute probiotic with equivalent efficacy. Prov: PHOEBE SULTANA MD 05/27/21 Clindamycin HCl (Clindamycin HCl) 300 Mg Capsule 300 MG PO QID, #40 CAP Prov: PHOEBE SULTANA MD 05/27/21 Sulfamethoxazole/Trimethoprim (Bactrim Ds Tablet) 1 Each Tablet 1 EACH PO TID, #30 TAB TID dose prescribed due to severity of infection Prov: PHOEBE SULTANA MD 05/27/21 Copy Copies To 1: SERGEY HUDSON JOSHUA T MD May 27, 2021 15:11
[2021-05-27 15:24] LABS: BASOPHILS % (AUTO) 0 % (0-10); EOSINOPHILS % (AUTO) 0 % (0-10); HEMATOCRIT 22 % (35-52); LYMPHOCYTES # (AUTO) 1.7 10^3/uL (1.0-4.0); LYMPHOCYTES % (AUTO) 13 % (12-44); MEAN CORPUSCULAR HEMOGLOBIN 27 pg (25-34); MEAN CORPUSCULAR HGB CONC 31 g/dL (32-36); MEAN CORPUSCULAR VOLUME 89 fL (80-99); MEAN PLATELET VOLUME 10.1 fL (9.0-12.2); MONOCYTES % (AUTO) 7 % (0-12); NEUTROPHILS # (AUTO) 10.4 10^3/uL (1.8-7.8); NEUTROPHILS % (AUTO) 78 % (42-75); PLATELET COUNT 367 10^3/uL (130-400); WHITE BLOOD COUNT 13.3 10^3/uL (4.3-11.0)
[2021-05-27 15:26] LABS: HEMOGLOBIN 6.8 g/dL (11.5-16.0)
[2021-05-27 15:40] LABS: INR 1.5 (0.8-1.4); PROTHROMBIN TIME PATIENT 18.5 SEC (12.2-14.7)
[2021-05-27 15:42] LABS: ALBUMIN 3.5 GM/DL (3.2-4.5); POTASSIUM 3.6 MMOL/L (3.6-5.0)
[2021-05-27 15:44] LABS: CALCIUM 9.8 MG/DL (8.5-10.1)
[2021-05-27 15:45] LABS: TOTAL PROTEIN 7.9 GM/DL (6.4-8.2)
[2021-05-27] MEDS ORDERED: CLINDAMYCIN 900 MG/50 ML IVPB 50 ML IV ONE (15:45)
[2021-05-27] MEDS ORDERED: cefTRIAXone 1,000 MG in WATER (STERILE) FOR INJECTION 10 ML IV ONE (15:45)
[2021-05-27 15:47] LABS: BILIRUBIN,TOTAL 0.5 MG/DL (0.1-1.0)
[2021-05-27 15:48] LABS: CREATININE SERUM 0.91 MG/DL (0.60-1.30)
[2021-05-27] MEDS ORDERED: VANCOMYCIN INJECTION 750 MG in NS (IVPB) 100 ML IV ONE (16:15)
[2021-05-27] MEDS ORDERED: VANCOMYCIN INJECTION 500 MG in NS (IVPB) 100 ML IV ONE (17:15)
[2021-05-27] MEDS ORDERED: CLIN300C12 PO (18:26)
[2021-05-27] MEDS ORDERED: L.AC1CAP6 PO (18:26)
[2021-05-27] MEDS ORDERED: SULF1TAB38 PO (18:26)
[2021-05-27] MEDS ORDERED: NS (IVPB) 250 ML ONE (19:01)
[2021-05-27 19:14] VITALS: BP 115/61
[2021-05-27 19:30] VITALS: BP 125/62
[2021-05-27 21:12] VITALS: BP 157/70
[2021-05-27 21:58] VITALS: BP 142/60
== END 2021-05-27 21:58 | disposition home or self-care (01) ==
LOC: ER 13:00 → EDUNIT# 13:04 → ER 21:58
DX: T81.49XA Infection following a procedure, other surgical site, initial encounter (principal); D64.9 Anemia, unspecified; I10 Essential (primary) hypertension; J45.909 Unspecified asthma, uncomplicated; F41.9 Anxiety disorder, unspecified; F32.9 Major depressive disorder, single episode, unspecified; F17.200 Nicotine dependence, unspecified, uncomplicated; Z79.899 Other long term (current) drug therapy
CPT/HCPCS: 36415; 80053; 83605; 85025; 85610; 85730; 86141; 86850; 86900; 86901; 86920; 87040; 87070; 87077; 87186; 87205

== ENCOUNTER 2021-06-22 16:59 | Emergency (ER) | payer MEDICAID ==
[~2021-06-22] VITALS: Ht 162 cm; Wt 61.0 kg
[~2021-06-22 16:59] MED LIST changes: +CLIN300C12 PO; +L.AC1CAP6 PO; +SULF1TAB38 PO
--- OUTSIDE RECORDS SUMMARY | 2021-06-22 17:06 | XMS REPORT | Encounter Summary ---
Author Author [facility] Address Unknown Phone Unavailable Care Team Providers Care Rubber Insulator Name Role Phone Cassius Morton PA-C PCP Loyda Li Unavailable Unavailable Reason for Visit * Reason Comments Medication Refill Encounter Details Care Team Description Date Type Department Cassius Morton PA-C [address] [place] [address] [email or web address] Medication Refill 05/02/2021 Refill Cotton O`Alfonso - Osk aloosa [address] [place] [address] Social History Date Tobacco Use [...] 03/29/2020 relatives? How often do you attend zoroastrianism or mormon Never 03/29/2020 services? Do you belong to any clubs or organizations such No 03/29/2020 as zoroastrianism groups, unions, fraternal or athletic groups, or [...] encounter Care Teams Start Date End Date Rubber Insulator Relationship Specialty 10/02/12 Cassius Morton, YOVANIC PCP - General [address] [place] [address] [email or web address] [place] 01/04/21 Loyda Li Community Resource Representativ e documented as of this encounter
[2021-06-22] MEDS: HYDROcodone/APAP 5 MG/325 MG (LORTAB) TAB PO ONE (18:06)
--- NOTE | 2021-06-22 18:22 | ED Upper Extremity ---
General Chief Complaint: Upper Extremity Stated Complaint: SHOULDER PAIN, POST OP Nursing Triage Note: AMB TO ED WITH SLING IN PLACE ON L ARM REPORTS HAS SURG BY DR JUAREZ AT [facility] 3 WEEKS AGO. TODAY ROLLED OVER ON L ARM AND HAS HAD PAIN SINCE. HAS NOT TAKEN ANY PAIN MEDS SINCE LAST NIGHT TOOK 1 MOTRIN TODAY. Source: patient Exam Limitations: no limitations (MARIE MILIAN APRN) History of Present Illness Date Seen by Provider: Jun 22, 2021 Time Seen by Provider: 18:19 Initial Comments To ER by private vehicle with reports of left shoulder pain. She fell while intoxicated on April 11 and fractured the proximal humerus. She was admitted here but left AGAINST MEDICAL ADVICE. She then returned on May 27 for purulent drainage coming from the wound. She was given clindamycin and Bactrim outpatient and followed up with her surgeon Dr. Juarez and had revision of this surgery subsequently. She denies fevers or chills. Its been hurting for 2 or 3 days but she rolled over onto it today causing an increase in pain. Onset: just prior to arrival Severity: moderate Pain/Injury Location: left shoulder Method of Injury: direct blow Modifying Factors: Worse With Movement (MARIE MILIAN APRN) Allergies and Home Medications Allergies Coded Allergies: No Known Drug Allergies (Unverified , 11/25/20) Patient Home Medication List Home Medication List Reviewed: Yes (MARIE MILIAN APRN) Clindamycin HCl (Clindamycin HCl) 300 Mg Capsule, 300 MG PO QID Prescribed by: PHOEBE GUERRERO on 05/27/21 182 Duloxetine HCl (Duloxetine HCl) 30 Mg Capsule.dr, 30 MG PO DAILY, (Reported) Entered as Reported by: JIM FLANNERY on 04/11/21 1605 Duloxetine HCl (Duloxetine HCl) 60 Mg Capsule.dr, 60 MG PO DAILY, (Reported) Entered as Reported by: JIM FLANNERY on 04/11/21 1605 Enalapril Maleate (Enalapril Maleate) 10 Mg Tablet, 10 MG PO DAILY, (Reported) Entered as Reported by: JIM FLANNERY on 04/11/21 1605 Folic Acid (Folic Acid) 1 Mg Tablet, 1 MG PO DAILY, (Reported) Entered as Reported by: JAQUI VIRGEN on 11/25/20 0913 Furosemide (Furosemide) 20 Mg Tablet, 20 MG PO DAILY, (Reported) Entered as Reported by: JIM FLANNERY on 04/11/21 1605 Gabapentin (Neurontin) 300 Mg Capsule, 300 MG PO QID, (Reported) Entered as Reported by: JIM FLANNERY on 04/11/21 1605 Hydrocodone/Acetaminophen (Hydrocodone-Acetamin 5-325 mg) 1 Each Tablet, 1 TAB PO Q4H PRN for PAIN-MODERATE (5-7) Prescribed by: MARIE MILIAN on 04/15/21 1426 Hydroxyzine Pamoate (Hydroxyzine Pamoate) 25 Mg Capsule, 25 MG PO TID PRN for ANXIETY, (Reported) Entered as Reported by: JIM FLANNERY on 04/11/21 160 L.acidoph & Paracasei,B.lactis (Probiotic) 1 Each Capsule, 1 EACH PO TIDAC Prescribed by: PHOEBE GUERRERO on 05/27/21 182 Oxycodone HCl/Acetaminophen (Percocet 5-325 mg Tablet) 1 Each Tablet, 1 TAB PO Q4H Prescribed by: MARIE MILIAN on 06/22/21 191 Potassium Chloride (Potassium Chloride) 20 Meq Tablet.er, 20 MEQ PO DAILY, (Reported) Entered as Reported by: JIM FLANNERY on 04/11/21 160 Sulfamethoxazole/Trimethoprim (Bactrim Ds Tablet) 1 Each Tablet, 1 EACH PO TID Prescribed by: PHOEBE GUERRERO on 05/27/21 182 Trazodone HCl (Trazodone HCl) 50 Mg Tablet, 50-100 MG PO HS PRN for SLEEP, (Reported) Entered as Reported by: JAQUI VIRGEN on 11/25/20 0856 Review of Systems Constitutional: see HPI EENTM: see HPI Respiratory: no symptoms reported Cardiovascular: no symptoms reported Genitourinary: no symptoms reported Musculoskeletal: see HPI Skin: no symptoms reported Psychiatric/Neurological: No Symptoms Reported (MARIE MILIAN APRN) Past Nsmvguq-Jrnlqp-Cbxgwb Hx Patient Social History Tobacco Use?: Yes Substance use?: No (MARIE MILIAN APRN) Immunizations Up To Date First/Initial COVID19 Vaccinat: UNKNOWN DATE. Second COVID19 Vaccination Luis: UNKNOW DATE. COVID19 Vaccine Gas Distribution Supervisor: EMMANUELLE (MARIE MILIAN APRN) Seasonal Allergies Seasonal Allergies: No (MARIE MILIAN APRN) Past Medical History Surgeries: Yes Orthopedic Respiratory: Yes Asthma Currently Using CPAP: No Currently Using BIPAP: No Cardiac: Yes (HX OF DVT) Deep Vein Thrombosis, Hypertension Neurological: No Female Reproductive Disorders: Denies Genitourinary: No Gastrointestinal: No Musculoskeletal: No Endocrine: No HEENT: No Cancer: No Psychosocial: Yes Anxiety, Depression Integumentary: No Blood Disorders: Yes (RH FACTOR) (MARIE MILIAN APRN) Family Medical History No Pertinent Family Hx (MARIE MILIAN APRN) Physical Exam Vital Signs Vital Signs - First Documented 06/22/21 17:25 Temp 36.2 Pulse 85 Resp 18 B/P (MAP) 145/85 (105) Pulse Ox 95 O2 Delivery Room Air (NAIMA FORBES DO) Vital Signs Capillary Refill : Less Than 3 Seconds (MARIE MILIAN APRN) Height, Weight, BMI Height: '" Weight: lbs. oz. kg; 23.00 BMI Method: General Appearance: WD/WN, no apparent distress Respiratory: no respiratory distress, no accessory muscle use Shoulder: deformity (Swelling to the left shoulder without erythema or ecchymosis. There is some firmness to the swelling but no obvious fluctuance to suggest abscess. There is no drainage and the incision is clean dry and intact. She denies any numbness or tingling of her fingers and has a strong radial pulse. She arrives wearing her sling from home.) Elbow/Forearm: normal inspection, non-tender Wrist: Yes normal inspection, Yes non-tender Hand: normal inspection, non-tender Neurologic/Tendon: normal sensation, normal motor functions Neurologic/Psychiatric: alert, normal mood/affect, oriented x 3 Skin: normal color, warm/dry (MARIE MILIAN APRN) Progress/Results/Core Measures Results/Orders Medications Given in ED Current Medications Medications Dose Ordered Sig/[place] Route Start Time Stop Time Status Last Admin Dose Admin Oxycodone/ Acetaminophen 1 ea Q4H PRN PO 06/22/21 19:15 06/22/21 19:19 DC 06/22/21 19:17 1 EA (LEIDYNAIMA K DO) Vital Signs/I&O 06/22/21 19:17 Temp 36.1 Pulse 81 Resp 16 B/P (MAP) 139/81 Pulse Ox 98 O2 Delivery Room Air (NAIMA FORBES ) Blood Pressure Mean: 105 Departure Communication (Admissions) Family Conversation 1909-She is neurovascularly intact. The x-ray does show an anterior dislocation of the shoulder but it was inferiorly dislocated on the x-rays on April 27 as well. She also had an x-ray done 2 weeks ago at [place], she has pictures of these on her phone and this dislocation appears to been present at that time as well. Therefore I think this is a subacute shoulder dislocation that does not warrant reduction attempts which would be ill advised given the recent hardware placement for the comminuted proximal right humerus fracture. I will have her c all Dr. Juarez tomorrow for follow-up. I did call Manuel rai but he is not on-call. In the meantime we will give her a prescription for Percocet. NAME: KING BLANCO MED REC#: [id number] PT STATUS: REG ER : 1960 PHYSICIAN: MARIE MILIAN APRN ADMIT DATE: 06/22/21/ER Draft Date of Exam:06/22/21 SHOULDER, LEFT, 3 VIEWS CLINICAL HISTORY: Left shoulder pain. History of surgery in the left shoulder. COMPARISON: 04/09/2021. 04/27/2021. TECHNIQUE: 3 views of the left shoulder. FINDINGS: There is anterior dislocation of the left shoulder. Postsurgical changes of open reduction internal fixation are seen in the proximal left humerus. The included left chest is clear. IMPRESSION: 1. Anterior dislocation of the left shoulder. 2. Postoperative changes of open reduction internal fixation of the proximal left humerus. Dictated on workstation # [id number] Dict: [id number] Trans: 06/22/21 185 [facility] [id number] Interpreted by: COLIN BUCHANAN DO Electronically signed by: (MARIE MILIAN APRN) Impression Primary Impression: Chronic dislocation of left shoulder Disposition: 01 HOME, SELF-CARE Condition: Stable Departure-Patient Inst. Decision time for Depature: 19:11 (MARIE MILIAN APRN) [place]errals: [facility] [place] Primary Care Physician DOC HARGROVE APRN (Family) Primary Care Physician Patient Instructions: Shoulder Dislocation (DC) Add. Discharge Instructions: 1. Keep the sling on at all times. Call Dr Juarez tomorrow to make an appointment to be seen. Take pain medication as directed. All discharge instructions reviewed with patient and/or family. Voiced understanding. Scripts Oxycodone HCl/Acetaminophen (Percocet 5-325 mg Tablet) 1 Each Tablet 1 TAB PO Q4H for PAIN-MODERATE MDD 6 TABS for 7 Days, #14 TAB Prov: MARIE MILIAN APRN 06/22/21 ATTENDING PHYSICIAN NOTE: I WAS PHYSICALLY PRESENT ER PHYSICIAN WHEN THIS PATIENT WAS IN ER, BUT I WAS NOT INVOLVED IN DECISION MAKING OR ANY CARE OF THIS PATIENT. (NAIMA FORBES DO) MARIE MILIAN APRN Jun 22, 2021 18:22 NAIMA FORBES DO Jun 23, 2021 06:30
--- NOTE | 2021-06-22 18:56 | Diagnostic Imaging Report ---
CLINICAL HISTORY: Left shoulder pain. History of surgery in the left shoulder. COMPARISON: 04/09/2021. 04/27/2021. TECHNIQUE: 3 views of the left shoulder. FINDINGS: There is anterior dislocation of the left shoulder. Postsurgical changes of open reduction internal fixation are seen in the proximal left humerus. The included left chest is clear. IMPRESSION: 1. Anterior dislocation of the left shoulder. 2. Postoperative changes of open reduction internal fixation of the proximal left humerus. Dictated by: Dictated on workstation # [id number]
[2021-06-22] MEDS ORDERED: OXYC1TAB87 PO (19:12)
[2021-06-22 19:17] VITALS: BP 139/81
[2021-06-22] MEDS: RX-OXYCODONE/APAP 5-325 MG #4 TAB PK PO PRN (19:17)
== END 2021-06-22 19:18 | disposition home or self-care (01) ==
LOC: EDUNIT# 16:59 → ER 17:02
DX: M24.412 Recurrent dislocation, left shoulder (principal); J45.909 Unspecified asthma, uncomplicated; I10 Essential (primary) hypertension; F41.9 Anxiety disorder, unspecified; F32.9 Major depressive disorder, single episode, unspecified; Z79.899 Other long term (current) drug therapy
CPT/HCPCS: 73030

== ENCOUNTER 2021-07-19 16:22 | Emergency (ER) | payer MEDICAID ==
[~2021-07-19] VITALS: Ht 162 cm; Wt 63.0 kg
[~2021-07-19 16:22] MED LIST changes: +OXYC1TAB87 PO
[2021-07-19] MEDS ORDERED: RX-MUPIROCIN (BACTROBAN) 2% OINT 22 GM TUBE TOP STA (17:05)
--- NOTE | 2021-07-19 17:12 | ED Upper Extremity ---
General Chief Complaint: Post OP Complications/Pain Stated Complaint: POST SHOULDER SURGERY INFECTION Nursing Triage Note: PT ARRIVES TO ER WITH C/O L SHOULDER POST OP INFECTION. PT HAD SURGERY AT THE BEGINNING OF MAY AND HAS HAD 1 INFECTION AT THE END OF MAY AND THINKS SHE HAS ANOTHER. SHE NOTICED THE PAIN AND DRAINAGE 2-3 DAYS AGO (KARL MENDOZA) History of Present Illness Date Seen by Provider: Jul 19, 2021 Time Seen by Provider: 16:40 Initial Comments 61-year-old female presents for wound to her left arm. She has had a previous ORIF and wound infection that has been treated with antibiotics for MRSA. Patient reports the wound has been healing nicely until approximately 3 days ago when she picked at her skin ER and an area open. Since then she has been having purulent drainage. She tried to see her primary care provider and her orthopedic surgeon with no treatment being offered. She does have an appointment scheduled with Dr. Vazquez for next week. She presents and requests treatment but no labs or IVs, she left her phone at home and wants discharged quickly. Onset: other (3 days ago) Pain/Injury Location: left arm (KARL MENDOZA) Allergies and Home Medications Allergies Coded Allergies: No Known Drug Allergies (Unverified , 11/25/20) Patient Home Medication List Home Medication List Reviewed: Yes (KARL MENDOZA) Clindamycin HCl (Clindamycin HCl) 300 Mg Capsule, 300 MG PO QID Prescribed by: PHOEBE GUERRERO on 05/27/21 1826 Clindamycin HCl (Clindamycin HCl) 300 Mg Capsule, 300 MG PO TID Prescribed by: KARL MENDOZA on 07/19/21 1713 Duloxetine HCl (Duloxetine HCl) 30 Mg Capsule.dr, 30 MG PO DAILY, (Reported) Entered as Reported by: JIM FLANNERY on 04/11/21 1605 Duloxetine HCl (Duloxetine HCl) 60 Mg Capsule.dr, 60 MG PO DAILY, (Reported) Entered as Reported by: JIM FLANNERY on 04/11/21 1605 Enalapril Maleate (Enalapril Maleate) 10 Mg Tablet, 10 MG PO DAILY, (Reported) Entered as Reported by: JIM FLANNERY on 04/11/21 1605 Folic Acid (Folic Acid) 1 Mg Tablet, 1 MG PO DAILY, (Reported) Entered as Reported by: JAQUI VIRGEN on 11/25/20 0913 Furosemide (Furosemide) 20 Mg Tablet, 20 MG PO DAILY, (Reported) Entered as Reported by: JIM FLANNERY on 04/11/21 160 Gabapentin (Neurontin) 300 Mg Capsule, 300 MG PO QID, (Reported) Entered as Reported by: JIM FLANNERY on 04/11/21 1605 Hydrocodone/Acetaminophen (Hydrocodone-Acetamin 5-325 mg) 1 Each Tablet, 1 TAB PO Q4H PRN for PAIN-MODERATE (5-7) Prescribed by: MARIE MILIAN on 04/15/21 1426 Hydroxyzine Pamoate (Hydroxyzine Pamoate) 25 Mg Capsule, 25 MG PO TID PRN for ANXIETY, (Reported) Entered as Reported by: JIM FLANNERY on 04/11/21 160 L.acidoph & Paracasei,B.lactis (Probiotic) 1 Each Capsule, 1 EACH PO TIDAC Prescribed by: PHOEBE GUERRERO on 05/27/21 182 Oxycodone HCl/Acetaminophen (Percocet 5-325 mg Tablet) 1 Each Tablet, 1 TAB PO Q4H Prescribed by: MARIE MILIAN on 06/22/21 191 Potassium Chloride (Potassium Chloride) 20 Meq Tablet.er, 20 MEQ PO DAILY, (Reported) Entered as Reported by: JIM FLANNERY on 04/11/21 160 Sulfamethoxazole/Trimethoprim (Bactrim Ds Tablet) 1 Each Tablet, 1 EACH PO TID Prescribed by: PHOEBE GUERRERO on 05/27/21 182 Sulfamethoxazole/Trimethoprim (Bactrim Ds Tablet) 1 Each Tablet, 1 EACH PO BID Prescribed by: KARL MENDOZA on 07/19/21 1713 Trazodone HCl (Trazodone HCl) 50 Mg Tablet, 50-100 MG PO HS PRN for SLEEP, (Reported) Entered as Reported by: JAQUI VIRGEN on 11/25/20 0856 Review of Systems Constitutional: no symptoms reported, see HPI Skin: see HPI, other (abscess noted to left upper arm, with trace purulent drainage) (KARL MENDOZA) All Other Systems Reviewed Negative Unless Noted: Yes (KARL MENDOZA) Past Gkeeurj-Cnxkmw-Mynuli Hx Patient Social History Tobacco Use?: Yes Tobacco type used: Cigarettes Smoking Status: Light Tobacco Smoker Substance use?: No Alcohol Use?: No Pt feels they are or have been: No (KARL MENDOZA) Immunizations Up To Date Influenza Vaccine Up-to-Date: No; Not Current First/Initial COVID19 Vaccinat: DECEMBER 2020 Second COVID19 Vaccination Luis: JANUARY 2021 COVID19 Vaccine Supervisor Of Guidance And Testing: TANISHA (KARL MENDOZA) Seasonal Allergies Seasonal Allergies: No (KARL MENDOZA) Past Medical History Surgery/Hospitalization HX: L SHOULDER SURGERY IN [place] IN MAY Surgeries: Yes Orthopedic Respiratory: Yes Asthma Currently Using CPAP: No Currently Using BIPAP: No Cardiac: Yes (HX OF DVT) Deep Vein Thrombosis, Hypertension Neurological: No Female Reproductive Disorders: Denies Genitourinary: No Gastrointestinal: No Musculoskeletal: No Endocrine: No HEENT: No Cancer: No Psychosocial: Yes Anxiety, Depression Integumentary: No Blood Disorders: Yes (RH FACTOR) (KARL MENDOZA) Family Medical History Reviewed Nursing Family Hx (KARL MENDOZA) No Pertinent Family Hx (KARL MENDOZA) Physical Exam Vital Signs Vital Signs - First Documented 07/19/21 16:35 Temp 36.8 Pulse 86 Resp 20 B/P (MAP) 124/68 (86) Pulse Ox 97 O2 Delivery Room Air (PHOEBE SULTANA MD) Vital Signs Capillary Refill : Less Than 3 Seconds (KARL MENDOZA) Height, Weight, BMI Height: '" Weight: lbs. oz. kg; 24.00 BMI Method: General Appearance: WD/WN, no apparent distress Neck: non-tender, full range of motion, supple, normal inspection Cardiovascular: normal peripheral pulses, regular rate, rhythm Respiratory: chest non-tender, lungs clear Shoulder: limited ROM (left shoulder), pain, soft tissue tenderness (well healed proximal incision to left upper arm. Distal wound with 1.5 cm pustule and purulent discharge. Culture obtained. No erythema, warmth, or induration. ), swelling Neurologic/Tendon: normal sensation, normal motor functions, normal tendon functions Neurologic/Psychiatric: no motor/sensory deficits, alert, normal mood/affect, oriented x 3 Skin: normal color, warm/dry (KARL MENDOZA) Progress/Results/Core Measures Results/Orders Blood Pressure Mean: 86 Departure Impression Primary Impression: Surgical wound infection Disposition: 01 HOME, SELF-CARE Condition: Improved Departure-Patient Inst. Decision time for Depature: 17:05 (KARL MENDOZA) Referrals: [facility] (PCP) Primary Care Physician DOC HARGROVE APRN (Family) Primary Care Physician Patient Instructions: Surgical Wound (DC), Wound Care (DC) Add. Discharge Instructions: Take antibiotics as prescribed. Clean the wound with peroxide and apply the Bactroban ointment 3 times daily. Keep your scheduled appointment with Dr. Vazquez for next week. Call Dr. Vazquez's office if wound becomes worse prior to your appointment. You may alternate between Tylenol 650 mg and ibuprofen 600 mg every 4 hours for pain. Return to the emergency department for new, urgent healthcare needs. Scripts Clindamycin HCl (Clindamycin HCl) 300 Mg Capsule 300 MG PO TID, #30 CAP 0 Refills Prov: KARL MENDOZA 07/19/21 Sulfamethoxazole/Trimethoprim (Bactrim Ds Tablet) 1 Each Tablet 1 EACH PO BID, #14 TAB 0 Refills Prov: KARL MENDOZA 07/19/21 ATTENDING PHYSICIAN NOTE: I was physically present as attending physician in the emergency department during the care of this patient, but I was not directly involved in the decision making or delivery of care for this patient. (PHOEBE SULTANA MD) KARL MENDOZA Jul 19, 2021 17:12 PHOEBE SULTANA MD Jul 20, 2021 06:44
[2021-07-19] MEDS ORDERED: SULF1TAB38 PO (17:13)
[2021-07-19] MEDS ORDERED: CLIN300C12 PO (17:13)
[2021-07-19 17:22] VITALS: BP 124/68
== END 2021-07-19 17:23 | disposition home or self-care (01) ==
LOC: EDUNIT# 16:22 → ER 16:24
DX: T81.49XA Infection following a procedure, other surgical site, initial encounter (principal); J45.909 Unspecified asthma, uncomplicated; I10 Essential (primary) hypertension; F41.9 Anxiety disorder, unspecified; F32.9 Major depressive disorder, single episode, unspecified; F17.210 Nicotine dependence, cigarettes, uncomplicated; Z86.16 Personal history of COVID-19; Z79.899 Other long term (current) drug therapy
CPT/HCPCS: 87070; 87077; 87186; 87205; 99282

== ENCOUNTER → 2022-02-06 | Outpatient (CLI) | payer MEDICAID ==
[~2022-02-06] MED LIST changes: +CLIN-144 PO; -CLIN300C12 PO; +ENAL1TAB14 PO; -ENAL1TAB8 PO
[2022-02-06 13:48] LABS: PROTHROMBIN TIME PATIENT 13.4 SEC (12.2-14.7)
== END ==
LOC: LAB 13:16
PROVIDERS: ATTEND Orthopaedic Surgery Sports Medicine
DX: R94.5 Abnormal results of liver function studies (principal)
CPT/HCPCS: 36415; 85610; 85652; 86141

== ENCOUNTER → 2022-03-09 | Outpatient (CLI) | payer MEDICAID ==
[2022-03-09 15:44] LABS: HEMATOCRIT 34 % (35-52); HEMOGLOBIN 10.1 g/dL (11.5-16.0); MEAN CORPUSCULAR HEMOGLOBIN 24 pg (25-34); MEAN CORPUSCULAR HGB CONC 30 g/dL (32-36); MEAN CORPUSCULAR VOLUME 81 fL (80-99); PLATELET COUNT 199 10^3/uL (130-400); WHITE BLOOD COUNT 10.7 10^3/uL (4.3-11.0)
[2022-03-09 16:03] LABS: ERYTHROCYTE SEDIMENTATION RATE 20 MM/HR (0-30)
== END ==
LOC: LAB 14:50
PROVIDERS: ATTEND Orthopaedic Surgery
DX: R31.9 Hematuria, unspecified (principal); Z96.612 Presence of left artificial shoulder joint
CPT/HCPCS: 36415; 85027; 85652; 86141

== ENCOUNTER 2022-09-14 13:24 | Emergency (ER) | payer MEDICAID ==
[~2022-09-14] VITALS: Ht 165 cm; Wt 65.8 kg
--- NOTE | 2022-09-14 15:58 | ED Upper Extremity ---
General Chief Complaint: Post OP Complications/Pain Stated Complaint: POST OP | LT ARM INFECTION Nursing Triage Note: PT POST OP LT SHOULDER SOME TIME IN JULY, 08/30/[address] LAZAR IN [place], CC OF DRAINAGE, NON DISPLACED PROXIMAL HUMEROUS Source: patient Exam Limitations: no limitations History of Present Illness Date Seen by Provider: Sep 14, 2022 Time Seen by Provider: 14:30 Initial Comments Patient is a 62-year-old female who presents to the emergency department for evaluation of drainage from her left shoulder. Patient has had several surgeries on the shoulder the last of which was a scope performed on 08/[address] Lazar in [place]. Patient states she noticed the area draining earlier today. She states the area is painful but she does have a known proximal humerus fracture that occurred while her shoulder was being manipulated during the shoulder scope. She states she is supposed to wear a sling on the affected extremity but states that it was covered in drainage and thus she is not currently wearing it. Denies any fever or significantly worsened redness/swelling to the left shoulder. She states she spoke with her surgeon's office who states they recommended patient be evaluated in a local ER. Patient states the office told her they would call in antibiotics for her as long as she can get the wound evaluated and cultured. Allergies and Home Medications Allergies Coded Allergies: No Known Drug Allergies (Unverified , 11/25/20) Patient Home Medication List Home Medication List Reviewed: Yes Clindamycin HCl (Clindamycin HCl) 300 Mg Capsule, 300 MG PO QID Prescribed by: PHOEBE GUERRERO on 05/27/21 1826 Clindamycin HCl (Clindamycin HCl) 300 Mg Capsule, 300 MG PO TID Prescribed by: KARL MENDOZA on 07/19/21 1713 Duloxetine HCl (Duloxetine HCl) 30 Mg Capsule.dr, 30 MG PO DAILY, (Reported) Entered as Reported by: JIM FLANNERY on 04/11/21 1605 Duloxetine HCl (Duloxetine HCl) 60 Mg Capsule.dr, 60 MG PO DAILY, (Reported) Entered as Reported by: JIM FLANNERY on 04/11/21 1605 Enalapril Maleate (Enalapril Maleate) 10 Mg Tablet, 10 MG PO DAILY, (Reported) Entered as Reported by: JIM FLANNERY on 04/11/21 1605 Folic Acid (Folic Acid) 1 Mg Tablet, 1 MG PO DAILY, (Reported) Entered as Reported by: JAQUI VIRGEN on 11/25/20 0913 Furosemide (Furosemide) 20 Mg Tablet, 20 MG PO DAILY, (Reported) Entered as Reported by: JIM FLANNERY on 04/11/21 1605 Gabapentin (Neurontin) 300 Mg Capsule, 300 MG PO QID, (Reported) Entered as Reported by: JIM FLANNERY on 04/11/21 1605 Hydrocodone/Acetaminophen (Hydrocodone-Acetamin 5-325 mg) 1 Each Tablet, 1 TAB PO Q4H PRN for PAIN-MODERATE (5-7) Prescribed by: MARIE MILIAN on 04/15/21 142 Hydroxyzine Pamoate (Hydroxyzine Pamoate) 25 Mg Capsule, 25 MG PO TID PRN for ANXIETY, (Reported) Entered as Reported by: JIM FLANNERY on 04/11/21 1605 L.acidoph & Paracasei,B.lactis (Probiotic) 1 Each Capsule, 1 EACH PO TIDAC Prescribed by: PHOEBE GUERRERO on 05/27/21 182 Oxycodone HCl/Acetaminophen (Percocet 5-325 mg Tablet) 1 Each Tablet, 1 TAB PO Q4H Prescribed by: MARIE MILIAN on 06/22/21 191 Potassium Chloride (Potassium Chloride) 20 Meq Tablet.er, 20 MEQ PO DAILY, (Reported) Entered as Reported by: JIM FLANNERY on 04/11/21 1605 Sulfamethoxazole/Trimethoprim (Bactrim Ds Tablet) 1 Each Tablet, 1 EACH PO TID Prescribed by: PHOEBE GUERRERO on 05/27/21 182 Sulfamethoxazole/Trimethoprim (Bactrim Ds Tablet) 1 Each Tablet, 1 EACH PO BID Prescribed by: KARL MENDOZA on 07/19/21 1713 Trazodone HCl (Trazodone HCl) 50 Mg Tablet, 50-100 MG PO HS PRN for SLEEP, (Reported) Entered as Reported by: JAQUI VIRGEN on 11/25/20 0856 Review of Systems Constitutional: no symptoms reported EENTM: no symptoms reported Respiratory: no symptoms reported Cardiovascular: no symptoms reported Gastrointestinal: no symptoms reported Genitourinary: no symptoms reported Musculoskeletal: see HPI, joint pain Past Iujumgz-Fngetj-Dromhx Hx Patient Social History Tobacco Use?: Yes Tobacco type used: Cigarettes Smoking Status: Current Someday Smoker Substance use?: No Alcohol Use?: No Immunizations Up To Date First/Initial COVID19 Vaccinat: DECEMBER 2020 Second COVID19 Vaccination Luis: JANUARY 2021 Third COVID19 Vaccination Date: DECEMBER 2020 Seasonal Allergies Seasonal Allergies: No Past Medical History Surgery/Hospitalization HX: [facility], [place] Surgeries: Yes Orthopedic Respiratory: Yes Asthma Currently Using CPAP: No Currently Using BIPAP: No Cardiac: Yes (HX OF DVT) Deep Vein Thrombosis, Hypertension Neurological: No Female Reproductive Disorders: Denies Genitourinary: No Gastrointestinal: No Musculoskeletal: No Endocrine: No HEENT: No Cancer: No Psychosocial: Yes Anxiety, Depression Integumentary: No Blood Disorders: Yes (RH FACTOR) Family Medical History No Pertinent Family Hx Physical Exam Vital Signs Vital Signs - First Documented 09/14/22 13:28 Temp 36.9 Pulse 84 Resp 20 B/P (MAP) 113/73 (86) Pulse Ox 96 O2 Delivery Room Air Capillary Refill : Less Than 3 Seconds Height, Weight, BMI Height: '" Weight: lbs. oz. kg; 24.00 BMI Method: General Appearance: WD/WN, no apparent distress HEENT: PERRL/EOMI, normal ENT inspection, TMs normal, pharynx normal Neck: non-tender, full range of motion, supple, normal inspection Cardiovascular: regular rate, rhythm Respiratory: chest non-tender, lungs clear, normal breath sounds, no respiratory distress, no accessory muscle use Gastrointestinal: normal bowel sounds, non tender, soft Neurologic/Psychiatric: no motor/sensory deficits, alert, normal mood/affect, oriented x 3 Skin: normal color, warm/dry Swelling noted to the left shoulder and upper arm; open area noted to the inferior portion of a previous incisional scab on the anterolateral aspect of the upper arm/shoulder; purulent drainage appears to be draining from this wound Progress/Results/Core Measures Results/Orders Micro Results Microbiology 09/14/22 Gram Stain, Resulted Pending 09/14/22 Wound Culture - Preliminary, Resulted Staphylococcus aureus My Orders Orders - JONATHAN CAHN APRN Wound Culture (09/14/22 15:51) Vital Signs/I&O Blood Pressure Mean: 86 Progress Progress Note : Progress Note Patient is nontoxic and well-hydrated on exam. Area does not appear erythematous and is not warm to touch. There does appear to be some purulence coming from what looks almost like a sinus tract in the inferior portion of the old surgical scar. Patient is not febrile and the vital signs are reassuring. Wound culture was obtained. Patient states that they have called antibiotics in for her from her surgeon's office. States she has an appointment to see them on Sunday. Discussed strict return precautions. Patient verbalized understanding. Departure Impression Primary Impression: Draining cutaneous sinus tract Disposition: HOME, SELF-CARE Condition: Stable Departure-Patient Inst. Decision time for Depature: 15:55 Referrals: NO,LOCAL PHYSICIAN (PCP/Family) Primary Care Physician Patient Instructions: ABSCESS Add. Discharge Instructions: Take the antibiotics as prescribed by your orthopedic provider. A wound culture was obtained today. Closely follow-up with your orthopedic provider or return here or somewhere like here if your symptoms acutely worsen. JONATHAN CHAN APRN Sep 14, 2022 15:58
[2022-09-14 16:25] VITALS: BP 113/73
== END 2022-09-14 16:25 | disposition home or self-care (01) ==
LOC: EDUNIT# 13:24 → ER 13:28
DX: T81.83XA Persistent postprocedural fistula, initial encounter (principal); F17.210 Nicotine dependence, cigarettes, uncomplicated
CPT/HCPCS: 87070; 87077; 87186; 87205; 99282

== ENCOUNTER → 2023-03-28 | Outpatient (CLI) | payer OTHER ==
[~2023-03-28] MED LIST changes: +ENAL-66 PO; -ENAL10TA16 PO; +ENLP10T PO; -ENLP5T PO; +POTA-330 PO; -POTA-51 PO
--- NOTE | 2023-03-28 18:12 | Diagnostic Imaging Report ---
INDICATION: Back pain. 3 views were obtained. FINDINGS: The bones are osteopenic. There are mild age-indeterminate central compression fractures of L2 and L3. There is no spondylolysis or spondylolisthesis. There is moderate atherosclerotic calcification of the aorta. IMPRESSION: Age-indeterminate mild compression fractures of L2 and L3. If there is high clinical concern that this may be acute, further evaluation with MRI should be considered. Dictated by: Dictated on workstation # [id number]
== END ==
LOC: RAD 10:21
PROVIDERS: ATTEND Family Medicine
DX: Z02.71 Encounter for disability determination (principal); M54.50 Low back pain, unspecified
CPT/HCPCS: 72100